=== PATIENT | female | born 1995 | race American Indian/Alaskan Native ===

== ENCOUNTER 2016-09-28 11:15 | Emergency (ER) | payer BC ==
[2016-09-28 12:55] LABS: Bilirubin,Urine NEG (Negative); Blood,Urine NEG (Negative); Ketones,Urine NEG (Negative); Leukocyte Esterase,Urine NEG (Negative); Nitrite,Urine NEG (Negative); Protein,Urine <15 mg/dL mg/dL (Negative); Urobilinogen,Urine < 2.0 mg/dL (<2.0); WBC,Urine < 1.0 /HPF (0.0-6.0)
[2016-09-28] MEDS ORDERED: TORADOL IM ONE (16:47)
[2016-09-28 16:48] LABS: Basophils % (Auto) 0.3 % (0.0-1.8); Eosinophils % (Auto) 0.6 % (0.0-4.3); Hematocrit 34.1 % (30.3-42.9); Hemoglobin 11.1 gm/dl (10.1-14.3); Mean Corpuscular HGB Conc 33 % (30-34); Mean Corpuscular Volume 77 fl (79-97); Platelet Count 173 K/mm3 (140-440); Red Blood Count 4.46 M/mm3 (3.65-5.03); Red Cell Distribution Width 13.2 % (13.2-15.2); White Blood Count 3.7 K/mm3 (4.5-11.0)
--- NOTE | 2016-09-28 16:49 | Emergency Department Report ---
ED General Adult HPI - General Chief complaint: Pain General Stated complaint: LUPUS FLARE Time Seen by Provider: 09/28/16 16:23 Source: patient Mode of arrival: Ambulatory Limitations: No Limitations - History of Present Illness Initial comments: 21-year-old female with a past medical history of lupus presents to the hospital complaining of generalized body pain secondary to lupus since last night. Pain is constant, rated 10/10 intensity. No aggravating or alleviating factors. Patient states that she has 5 of these attacks per month but not all are severe enough to go to the ER. She typically takes Tylenol as needed for pain. She typically goes to a different hospital. 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 No reports of fever, nausea, vomiting, or dysuria - Related Data Previous Rx's Medication Instructions Recorded Last Taken Type Ibuprofen [Motrin] 800 mg PO Q8HR PRN #30 tablet 09/28/16 Unknown Rx oxyCODONE /ACETAMINOPHEN [Percocet 1 tab PO Q6HR PRN #20 tablet 09/28/16 Unknown Rx 5/325] Allergies Allergy/AdvReac Type Severity Reaction Status Date / Time No Known Allergies Allergy Unverified 09/28/16 11:54 ED Review of Systems ROS: Stated complaint: LUPUS FLARE Other details as noted in HPI Comment: All other systems reviewed and negative Other: Constitutional: No fevers chills Eyes: No eye pain visual changes ENT: No ear pain or throat pain Neck: Denies pain Respiratory: Denies cough wheezing shortness of breath Cardiovascular: Denies chest pain, palpitations, syncope GI: Denies abdominal pain, nausea, vomiting, diarrhea : Denies dysuria Musculoskeletal: Generalized pain Skin: Denies rash, lesions, erythema Neurologic: Denies headache, numbness, weakness Psychiatric: Denies suicidal ideation, hallucinations ED Past Medical Hx - Past Medical History Additional medical history: Lupus - Surgical History Past Surgical History?: No - Social History Smoking Status: Never Smoker Substance Use Type: None - Medications Home Medications: Home Medications Medication Instructions Recorded Confirmed Last Taken Type Ibuprofen [Motrin] 800 mg PO Q8HR PRN #30 tablet 09/28/16 Unknown Rx oxyCODONE /ACETAMINOPHEN [Percocet 1 tab PO Q6HR PRN #20 tablet 09/28/16 Unknown Rx 5/325] ED Physical Exam - General Limitations: No Limitations - Other Other exam information: General: No limitations, patient is alert in no acute distress Head exam: Atraumatic, normocephalic Eyes exam: Normal appearance ENT: Moist mucous membrane, normal oropharynx Neck exam: Normal inspection, full range of motion, no meningismus nontender Respiratory exam: Clear to auscultation bilateral, no wheezes, rales, crackles Cardiovascular: Normal rate and rhythm, normal heart sounds Abdomen: Soft, nondistended, and nontender, with normal bowel sounds, no rebound, or guarding Extremity: Full range of motion normal inspection no deformity Back: Normal Inspection, full range of motion, no tenderness Neurologic: Alert, oriented x3, cranial nerves intact, no motor or sensory deficit Psychiatric: normal affect, normal mood Skin: Warm, dry, intact ED Course Vital Signs 09/28/16 09/28/16 09/28/16 11:55 17:05 18:20 Temperature 98.6 F Pulse Rate 105 H Respiratory 20 18 Rate Blood Pressure 130/87 Blood Pressure [Left] O2 Sat by Pulse 100 100 Oximetry 09/28/16 18:26 Temperature Pulse Rate 73 Respiratory 16 Rate Blood Pressure Blood Pressure 113/70 [Left] O2 Sat by Pulse 100 Oximetry - Reevaluation(s) Reevaluation #1: 09/28/16 16:49 Toradol ordered for pain labs pending ED Medical Decision Making - Lab Data Result diagrams: 09/28/16 16:28 09/28/16 16:28 Lab Results 09/28/16 09/28/16 09/28/16 Range/Units 12:41 16:28 16:28 WBC 3.7 L (4.5-11.0) K/mm3 RBC 4.46 (3.65-5.03) M/mm3 Hgb 11.1 (10.1-14.3) gm/dl Hct 34.1 (30.3-42.9) % MCV 77 L (79-97) fl MCH 25 L (28-32) pg MCHC 33 (30-34) % RDW 13.2 (13.2-15.2) % Plt Count 173 (140-440) K/mm3 Lymph % (Auto) 30.1 (13.4-35.0) % [place] % (Auto) 11.6 H (0.0-7.3) % Eos % (Auto) 0.6 (0.0-4.3) % Baso % (Auto) 0.3 (0.0-1.8) % Lymph # 1.1 L (1.2-5.4) K/mm3 [place] # 0.4 (0.0-0.8) K/mm3 Eos # 0.0 (0.0-0.4) K/mm3 Baso # 0.0 (0.0-0.1) K/mm3 Seg Neutrophils % 57.4 (40.0-70.0) % Seg Neutrophils # 2.1 (1.8-7.7) K/mm3 Sodium 139 (137-145) mmol/L Potassium 4.3 (3.6-5.0) mmol/L Chloride 102.8 (98-107) mmol/L Carbon Dioxide 25 (22-30) mmol/L Anion Gap 16 mmol/L BUN 8 (7-17) mg/dL Creatinine 0.5 L (0.7-1.2) mg/dL Estimated GFR > 60 ml/min BUN/Creatinine Ratio 16.00 % Glucose 88 (65-100) mg/dL Calcium 9.3 (8.4-10.2) mg/dL Urine Color Straw (Yellow) Urine Turbidity Clear (Clear) Urine pH 6.0 (5.0-7.0) Ur Specific [place] 1.008 (1.003-1.030) Urine Protein <15 mg/dl (Negative) mg/dL Urine Glucose (UA) Neg (Negative) mg/dL Urine Ketones Neg (Negative) mg/dL Urine Blood Neg (Negative) Urine Nitrite Neg (Negative) Urine Bilirubin Neg (Negative) Urine Urobilinogen < 2.0 (<2.0) mg/dL Ur Leukocyte Esterase Neg (Negative) Urine WBC (Auto) < 1.0 (0.0-6.0) /HPF Urine RBC (Auto) 0.0 (0.0-6.0) /HPF Urine HCG, Qual Negative (Negative) - Medical Decision Making Patient pain improved somewhat with Toradol. She is driving home therefore we cannot give anything stronger in the ED. She stated typically is discharge her home on Percocet for her flares. Percocet and Motrin will be prescribed. PMD follow-up will be encouraged.. Initial tachycardia improved. - Differential Diagnosis lupus flare, Chronic pain, infection Critical Care Time: No Critical care attestation.: If time is entered above; I have spent that time in minutes in the direct care of this critically ill patient, excluding procedure time. ED Disposition Clinical Impression: Lupus, Generalized pain Disposition: DISCHARGED TO HOME OR SELFCARE Is pt being admited?: No Does the pt Need Aspirin: No Condition: Stable Instructions: Chronic Pain (ED) Additional Instructions: Take the medication as prescribed. Follow-up with the primary care doctor provided or the doctor of your choice. Return if symptoms worsen Prescriptions: Ibuprofen [Motrin] 800 mg PO Q8HR PRN #30 tablet PRN Reason: Pain oxyCODONE /ACETAMINOPHEN [Percocet 5/325] 1 tab PO Q6HR PRN #20 tablet PRN Reason: Pain Referrals: GINGER PALMA MD [Staff Physician] - 3-5 Days Time of Disposition: 18:39
[2016-09-28 16:51] LABS: Mean Corpuscular Hemoglobin 25 pg (28-32)
[2016-09-28 16:55] LABS: Anion Gap 16 mmol/L; Blood Urea Nitrogen 8 mg/dL (7-17); Calcium 9.3 mg/dL (8.4-10.2); Carbon Dioxide 25 mmol/L (22-30); Chloride 102.8 mmol/L (98-107); Glucose 88 mg/dL (65-100); Potassium 4.3 mmol/L (3.6-5.0); Sodium 139 mmol/L (137-145)
[2016-09-28 19:57] VITALS: BP 107/65
== END 2016-09-28 18:50 | disposition home or self-care (01) ==
LOC: ED 11:15
DX: L93.0 Discoid lupus erythematosus (principal); M79.1 Myalgia
CPT/HCPCS: 36415; 80048; 81001; 81025; 85025; 96372; 99283; J1885

== ENCOUNTER 2017-01-01 08:44 | Emergency (ER) | payer BC ==
[2017-01-01] MEDS ORDERED: DECADRON IM ONE (10:18)
[2017-01-01] MEDS ORDERED: XYLOCAINE 1% MPF 5 mL INFILTRATI ONE (10:18)
[2017-01-01] MEDS ORDERED: ROCEPHIN IM ONE (10:18)
--- NOTE | 2017-01-01 10:34 | Emergency Department Report ---
- General Chief Complaint: Upper Respiratory Infection Stated Complaint: POSS SINUS INFECTION/FACIAL PAIN/ACTIVE LUPUS Time Seen by Provider: 01/01/17 10:11 Source: patient Mode of arrival: Ambulatory Limitations: No Limitations - History of Present Illness Initial Comments: Patient comes into the ER today with complaints of facial pain and nasal congestion for the past 3 days. Patient states that she was seen at another facility yesterday and told that she had a sinus infection. Patient was prescribed amoxicillin as well as methylprednisolone. Patient has not filled previously prescribed prescriptions and comes in here today with the same complaints and wanting to know what we think. Patient states that she is not any better from yesterday. MD Complaint: nasal congestion, sinus pain -: days(s) (3) - Related Data Previous Rx's Medication Instructions Recorded Last Taken Type Ibuprofen [Motrin] 800 mg PO Q8HR PRN #30 tablet 09/28/16 Unknown Rx oxyCODONE /ACETAMINOPHEN [Percocet 1 tab PO Q6HR PRN #20 tablet 09/28/16 Unknown Rx 5/325] Allergies Allergy/AdvReac Type Severity Reaction Status Date / Time No Known Allergies Allergy Unverified 01/01/17 09:12 ED Review of Systems ROS: Stated complaint: POSS SINUS INFECTION/FACIAL PAIN/ACTIVE LUPUS Other details as noted in HPI Constitutional: denies: chills, fever Eyes: denies: eye pain, eye discharge, vision change ENT: congestion. denies: ear pain, throat pain, dental pain Respiratory: denies: cough, shortness of breath, wheezing Cardiovascular: denies: chest pain, palpitations Endocrine: no symptoms reported Gastrointestinal: denies: abdominal pain, nausea, diarrhea Genitourinary: denies: urgency, dysuria, discharge Musculoskeletal: denies: back pain, joint swelling, arthralgia Skin: denies: rash, lesions Neurological: denies: headache, weakness, paresthesias Psychiatric: denies: anxiety, depression Hematological/Lymphatic: denies: easy bleeding, easy bruising ED Past Medical Hx - Past Medical History Previous Medical History?: Yes Additional medical history: Lupus - Surgical History Past Surgical History?: No - Social History Smoking Status: Never Smoker Substance Use Type: None - Medications Home Medications: Home Medications Medication Instructions Recorded Confirmed Last Taken Type Ibuprofen [Motrin] 800 mg PO Q8HR PRN #30 tablet 04/02/17 Unknown Rx oxyCODONE /ACETAMINOPHEN [Percocet 1 tab PO Q6HR PRN #20 tablet 09/28/16 Unknown Rx 5/325] ED Physical Exam - General Limitations: No Limitations General appearance: alert, in no apparent distress - Head Head exam: Present: atraumatic, normocephalic - Eye Eye exam: Present: normal appearance, PERRL, EOMI. Absent: conjunctival injection, periorbital swelling, periorbital tenderness Pupils: Present: normal accommodation - ENT ENT exam: Present: normal orophraynx, mucous membranes moist, TM's normal bilaterally, normal external ear exam, other (bilateral nasal mucosa redness and turbinate swelling noted. Bilateral maxillary and frontal sinus tenderness to percussion) - Neck Neck exam: Present: normal inspection, full ROM. Absent: tenderness, lymphadenopathy - Respiratory Respiratory exam: Present: normal lung sounds bilaterally. Absent: respiratory distress, wheezes, rales, rhonchi, chest wall tenderness - Cardiovascular Cardiovascular Exam: Present: regular rate, normal rhythm. Absent: systolic murmur, diastolic murmur, rubs, gallop - GI/Abdominal GI/Abdominal exam: Present: soft, normal bowel sounds - Extremities Exam Extremities exam: Present: normal inspection - Back Exam Back exam: Present: normal inspection - Neurological Exam Neurological exam: Present: alert, oriented X3 - Psychiatric Psychiatric exam: Present: normal affect, normal mood - Skin Skin exam: Present: warm, dry, intact, normal color. Absent: rash ED Course Vital Signs 01/01/17 09:09 Temperature 99 F Pulse Rate 117 H Respiratory 16 Rate Blood Pressure 133/80 O2 Sat by Pulse 100 Oximetry ED Medical Decision Making - Medical Decision Making Patient is nontoxic and hemodynamically stable. Patient was given Decadron 10 mg IM as well as Rocephin 1 g IM to expedite recovery time. I have encouraged patient to fill the previously prescribed medications from the other facility. I will excuse patient from work for the next couple days. Patient is in agreement with treatment plan the patient is stable for discharge. Critical care attestation.: If time is entered above; I have spent that time in minutes in the direct care of this critically ill patient, excluding procedure time. ED Disposition Clinical Impression: Sinusitis, Facial pain, History of lupus Disposition: - TO HOME OR SELFCARE Is pt being admited?: No Does the pt Need Aspirin: No Condition: Good Instructions: Sinusitis (ED) Referrals: PRIMARY CARE, [Primary Care Provider] - 3-5 Days ANJELICA SWANN MD [Referring] - 3-5 Days (Rheumatology doctor for your lupus) Forms: Work/School Release Form(ED) Time of Disposition: 10:36
[2017-01-01 11:11] VITALS: BP 116/70
== END 2017-01-01 10:37 | disposition home or self-care (01) ==
LOC: ED 08:44
DX: J32.9 Chronic sinusitis, unspecified (principal)
CPT/HCPCS: 96372; 99282; J0696; J1100

== ENCOUNTER 2017-04-21 11:30 | Emergency (ER) | payer BC ==
--- NOTE | 2017-04-21 11:55 | Emergency Department Report ---
Chief Complaint: Pain General Stated Complaint: LUPUS PAIN Time Seen by Provider: 04/21/17 11:52 - HPI History of Present Illness: Patient is a 21 y/o female with h/o Lupus who presents due to generalized body aches x 1 day. Patient denies any abdominal pain but admits of 1 episode of vomiting. Patient denies any fever or chills. - ROS Review of Systems: + bodyaches, +vomiting - Exam Vital Signs: Vital Signs 04/21/17 11:34 Temperature 98.9 F Pulse Rate 88 Respiratory 18 Rate Blood Pressure 145/85 O2 Sat by Pulse 100 Oximetry Physical Exam: PATIENT WAS ALERT AND ORIENTED, GENERALIZED BODY ACHES MSE screening note: Focused history and physical exam performed. Due to findings the following was ordered:CBC, CMP, URINALYSIS, UPT ED Disposition for MSE Condition: Stable
[2017-04-21 12:05] LABS: Hematocrit 32.1 % (30.3-42.9); Hemoglobin 10.3 gm/dl (10.1-14.3); Mean Corpuscular HGB Conc 32 % (30-34); Mean Corpuscular Volume 77 fl (79-97); Platelet Count 213 K/mm3 (140-440); Red Cell Distribution Width 13.9 % (13.2-15.2); White Blood Count 3.2 K/mm3 (4.5-11.0)
[2017-04-21 12:06] LABS: Bilirubin,Urine NEG (Negative); Blood,Urine SM (Negative); Ketones,Urine NEG (Negative); Leukocyte Esterase,Urine NEG (Negative); Mucus,Urine FEW /HPF; Nitrite,Urine NEG (Negative); Protein,Urine <15 mg/dL mg/dL (Negative); Urobilinogen,Urine < 2.0 mg/dL (<2.0)
[2017-04-21 12:09] LABS: Mean Corpuscular Hemoglobin 25 pg (28-32)
[2017-04-21 12:20] LABS: Anion Gap 18 mmol/L; BUN/Creatinine Ratio 13; Blood Urea Nitrogen 8 mg/dL (7-17); Calcium 8.8 mg/dL (8.4-10.2); Carbon Dioxide 24 mmol/L (22-30); Chloride 105.6 mmol/L (98-107); Glucose 67 mg/dL (65-100); Potassium 4.5 mmol/L (3.6-5.0); Sodium 143 mmol/L (137-145)
[2017-04-21 14:06] VITALS: BP 109/63
--- NOTE | 2017-04-21 15:04 | Emergency Department Report ---
ED General Adult HPI - General Chief complaint: Pain General Stated complaint: LUPUS PAIN Time Seen by Provider: 04/21/17 14:04 Source: patient Mode of arrival: Ambulatory Limitations: No Limitations - History of Present Illness Severity scale (0 -10): 8 - Related Data Previous Rx's Medication Instructions Recorded Last Taken Type Ibuprofen [Motrin] 800 mg PO Q8HR PRN #30 tablet 09/28/16 Unknown Rx oxyCODONE /ACETAMINOPHEN [Percocet 1 tab PO Q6HR PRN #20 tablet 09/28/16 Unknown Rx 5/325] Allergies Allergy/AdvReac Type Severity Reaction Status Date / Time No Known Allergies Allergy Unverified 01/01/17 09:12 ED Review of Systems ROS: Stated complaint: LUPUS PAIN Other details as noted in HPI ED Past Medical Hx - Past Medical History Additional medical history: Lupus - Social History Smoking Status: Never Smoker Substance Use Type: None - Medications Home Medications: Home Medications Medication Instructions Recorded Confirmed Last Taken Type Ibuprofen [Motrin] 800 mg PO Q8HR PRN #30 tablet 09/28/16 Unknown Rx oxyCODONE /ACETAMINOPHEN [Percocet 1 tab PO Q6HR PRN #20 tablet 09/28/16 Unknown Rx 5/325] ED Physical Exam - General Limitations: No Limitations ED Course Vital Signs 04/21/17 04/21/17 11:34 14:04 Temperature 98.9 F Pulse Rate 88 63 Respiratory 18 18 Rate Blood Pressure 145/85 Blood Pressure 109/63 [Left] O2 Sat by Pulse 100 Oximetry ED Medical Decision Making - Lab Data Result diagrams: 04/21/17 11:50 04/21/17 11:50 Critical care attestation.: If time is entered above; I have spent that time in minutes in the direct care of this critically ill patient, excluding procedure time. ED Disposition Condition: Stable Referrals: PRIMARY CARE, [Primary Care Provider] - 3-5 Days
[2017-04-21] MEDS ORDERED: TYLENOL PO ONE (15:59)
[2017-04-21] MEDS ORDERED: MOTRIN PO ONE (15:59)
--- NOTE | 2017-04-21 16:00 | Event Note ---
Date: 04/21/17 Patient in no distress. Appears quite comfortable. Requested multiple times for the patient to get change into a gown. Explaining the importance of having the patient change in a gown to complete a thorough physical examination. Patient at this point is refusing to get change into a gown. Pain medication as ordered. Vital Signs 04/21/17 04/21/17 11:34 14:04 Temperature 98.9 F Pulse Rate 88 63 Respiratory 18 18 Rate Blood Pressure 145/85 Blood Pressure 109/63 [Left] O2 Sat by Pulse 100 Oximetry Lab Results 04/21/17 04/21/17 04/21/17 Range/Units 11:50 11:50 11:50 WBC 3.2 L (4.5-11.0) K/mm3 RBC 4.20 (3.65-5.03) M/mm3 Hgb 10.3 (10.1-14.3) gm/dl Hct 32.1 (30.3-42.9) % MCV 77 L (79-97) fl MCH 25 L (28-32) pg MCHC 32 (30-34) % RDW 13.9 (13.2-15.2) % Plt Count 213 (140-440) K/mm3 Sodium 143 (137-145) mmol/L Potassium 4.5 (3.6-5.0) mmol/L Chloride 105.6 (98-107) mmol/L Carbon Dioxide 24 (22-30) mmol/L Anion Gap 18 mmol/L BUN 8 (7-17) mg/dL Creatinine 0.6 L (0.7-1.2) mg/dL Estimated GFR > 60 ml/min BUN/Creatinine Ratio 13 % Glucose 67 (65-100) mg/dL Calcium 8.8 (8.4-10.2) mg/dL Total Creatine Kinase 65 (30-135) units/L Urine Color (Yellow) Urine Turbidity (Clear) Urine pH (5.0-7.0) Ur Specific [place] (1.003-1.030) Urine Protein (Negative) mg/dL Urine Glucose (UA) (Negative) mg/dL Urine Ketones (Negative) mg/dL Urine Blood (Negative) Urine Nitrite (Negative) Urine Bilirubin (Negative) Urine Urobilinogen (<2.0) mg/dL Ur Leukocyte Esterase (Negative) Urine WBC (Auto) (0.0-6.0) /HPF Urine RBC (Auto) (0.0-6.0) /HPF U Epithel Cells (Auto) (0-13.0) /HPF Urine Mucus /HPF Urine HCG, Qual (Negative) 04/21/17 04/21/17 Range/Units 11:51 Unknown WBC (4.5-11.0) K/mm3 RBC (3.65-5.03) M/mm3 Hgb (10.1-14.3) gm/dl Hct (30.3-42.9) % MCV (79-97) fl MCH (28-32) pg MCHC (30-34) % RDW (13.2-15.2) % Plt Count (140-440) K/mm3 Sodium (137-145) mmol/L Potassium (3.6-5.0) mmol/L Chloride (98-107) mmol/L Carbon Dioxide (22-30) mmol/L Anion Gap mmol/L BUN (7-17) mg/dL Creatinine (0.7-1.2) mg/dL Estimated GFR ml/min BUN/Creatinine Ratio % Glucose (65-100) mg/dL Calcium (8.4-10.2) mg/dL Total Creatine Kinase (30-135) units/L Urine Color Red (Yellow) Urine Turbidity Clear (Clear) Urine pH 6.0 (5.0-7.0) Ur Specific [place] 1.005 (1.003-1.030) Urine Protein <15 mg/dl (Negative) mg/dL Urine Glucose (UA) Neg (Negative) mg/dL Urine Ketones Neg (Negative) mg/dL Urine Blood Sm (Negative) Urine Nitrite Neg (Negative) Urine Bilirubin Neg (Negative) Urine Urobilinogen < 2.0 (<2.0) mg/dL Ur Leukocyte Esterase Neg (Negative) Urine WBC (Auto) 1.0 (0.0-6.0) /HPF Urine RBC (Auto) 3.0 (0.0-6.0) /HPF U Epithel Cells (Auto) 1.0 (0-13.0) /HPF Urine Mucus Few /HPF Urine HCG, Qual Negative (Negative)
--- NOTE | 2017-04-21 18:28 | Emergency Department Report ---
<BARAK AGARWAL - Last Filed: 04/21/17 18:49> ED General Adult HPI - General Chief complaint: Pain General Stated complaint: LUPUS PAIN Time Seen by Provider: 04/21/17 14:04 Source: patient Mode of arrival: Ambulatory Limitations: No Limitations - History of Present Illness Initial comments: This is a 21-year-old female nontoxic, well nourished in appearance, no acute signs of distress presents to the ED complaining of lupus flareup. Patient describes pain as aching throughout the body. Patient stated this is a usual flareup and is subsided by pain medication. Patient denies any fever, chills, headache, n/v, chest pain, shortness of breathe, numbness, tingling, stiff neck. Patient denies any allergies or past history besides lupus. MD Complaint: Lupus flareup -: year(s) Radiation: non-radiation Severity scale (0 -10): 10 Quality: aching Consistency: constant Improves with: none Worsens with: none Associated Symptoms: denies other symptoms. denies: confusion, chest pain, cough, diaphoresis, fever/chills, headaches, loss of appetite, malaise, nausea/ vomiting, rash, seizure, shortness of breath, syncope, weakness Treatments Prior to Arrival: none - Related Data Previous Rx's Medication Instructions Recorded Last Taken Type Ibuprofen [Motrin] 800 mg PO Q8HR PRN #30 tablet 09/28/16 Unknown Rx oxyCODONE /ACETAMINOPHEN [Percocet 1 tab PO Q6HR PRN #20 tablet 09/28/16 Unknown Rx 5/325] Ibuprofen [Motrin 600 MG tab] 600 mg PO Q8H PRN #30 tablet 04/21/17 Unknown Rx predniSONE [Deltasone] 40 mg PO QDAY #5 tab 04/21/17 Unknown Rx Allergies Allergy/AdvReac Type Severity Reaction Status Date / Time No Known Allergies Allergy Unverified 01/01/17 09:12 ED Review of Systems ROS: Stated complaint: LUPUS PAIN Other details as noted in HPI Constitutional: denies: chills, fever Eyes: denies: eye pain, eye discharge, vision change ENT: denies: ear pain, throat pain Respiratory: denies: cough, shortness of breath, wheezing Cardiovascular: denies: chest pain, palpitations Endocrine: no symptoms reported Gastrointestinal: denies: abdominal pain, nausea, diarrhea Genitourinary: denies: urgency, dysuria, discharge Musculoskeletal: denies: back pain, joint swelling, arthralgia Skin: denies: rash, lesions Neurological: denies: headache, weakness, paresthesias Psychiatric: denies: anxiety, depression Hematological/Lymphatic: denies: easy bleeding, easy bruising ED Past Medical Hx - Past Medical History Additional medical history: Lupus - Social History Smoking Status: Never Smoker Substance Use Type: None - Medications Home Medications: Home Medications Medication Instructions Recorded Confirmed Last Taken Type Ibuprofen [Motrin] 800 mg PO Q8HR PRN #30 tablet 09/28/16 Unknown Rx oxyCODONE /ACETAMINOPHEN [Percocet 1 tab PO Q6HR PRN #20 tablet 09/28/16 Unknown Rx 5/325] Ibuprofen [Motrin 600 MG tab] 600 mg PO Q8H PRN #30 tablet 04/21/17 Unknown Rx predniSONE [Deltasone] 40 mg PO QDAY #5 tab 04/21/17 Unknown Rx ED Physical Exam - General Limitations: No Limitations - Other Other exam information: Unable to exam patient because patient is refusing to change into a gown and is laying under blankets. ED Course Vital Signs 04/21/17 04/21/17 11:34 14:04 Temperature 98.9 F Pulse Rate 88 63 Respiratory 18 18 Rate Blood Pressure 145/85 Blood Pressure 109/63 [Left] O2 Sat by Pulse 100 Oximetry - Reevaluation(s) Reevaluation #1: 04/21/17 18:29 Patient is speaking in full sentences with no signs of distress ntoed. ED Medical Decision Making - Lab Data Result diagrams: 04/21/17 11:50 04/21/17 11:50 - Medical Decision Making 21-year-old female that presents with lupus flare up. Patient is refusing to change to a gown and is covered with blankets and stated she does not want to be examined and wants to be treated. I notified the patient that it is mandatory that examined the patient due to possible abnormal findings but patient stated she does not want to be examined. I educated my concerns but patient stated she still does not want be examined and stated she will sign an AMA form and is wants to be treated for pain. I instructed the patient that if symptoms worsen and continue she must return to emergency room as soon as possible. Patient was instructed to follow-up with a primary care doctor in 3-5 days or if symptoms worsen and continue return to emergency room as soon as possible possible. Patient is hemodynamically stable with stable vital signs.At time time of discharge, the patient does not seem toxic or ill in appearance. No acute signs of distress noted. No further questions noted by the patient. Patient received Solu-medrol 125mg IM in the ED and d/c with NSAIDs and prednisone. UpToDate states proper treatment with NSAIDs and prednisone. [email or web address].uptodate.[email or web address]-[email or web address]?source=search_result&search=lupus%20flare %20treatment&[id number] Critical care attestation.: If time is entered above; I have spent that time in minutes in the direct care of this critically ill patient, excluding procedure time. 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 Do not operate any machinery while taking Ultram due to sedation/drowsiness. Prescriptions: Ibuprofen [Motrin 600 MG tab] 600 mg PO Q8H PRN #30 tablet PRN Reason: Pain predniSONE [Deltasone] 40 mg PO QDAY #5 tab Referrals: PRIMARY CAREMD [Primary Care Provider] - 3-5 Days FIDEL JEFFERSON MD [Staff Physician] - 3-5 Days [facility] [Outside] - 3-[address] [facility] [Outside] - 3-5 Days Forms: Work/School Release Form(ED), AMA Form <MADISON JOY - Last Filed: 04/23/17 19:56> ED Medical Decision Making - Lab Data Result diagrams: 04/21/17 11:50 04/21/17 11:50
== END 2017-04-21 18:56 | disposition left against medical advice (07) ==
LOC: ED 11:30
DX: L93.0 Discoid lupus erythematosus (principal)
CPT/HCPCS: 36415; 80048; 81001; 81025; 82550; 85027; 96372; 99283; J2930

== ENCOUNTER 2017-06-18 08:59 | Emergency (ER) | payer BC ==
[2017-06-18 09:22] VITALS: BP 125/91
== END 2017-06-18 14:59 ==
LOC: ED 08:59
DX: R07.9 Chest pain, unspecified (principal); Z53.21 Procedure and treatment not carried out due to patient leaving prior to being seen by health care provider
CPT/HCPCS: 93005; 93010